=== PATIENT | female | born 1965 | race Caucasian/White ===

== ENCOUNTER 2016-09-22 15:19 | Emergency (ER) | payer MEDICAID ==
[~2016-09-22] VITALS: Ht 175.3 cm; Wt 70.0 kg
[2016-09-22 16:27] LABS: HCG SCREEN NEGATIVE
[2016-09-22] MEDS ORDERED: IBUPROFEN 600MG TABLET PO ONE (17:45)
[2016-09-22] MEDS ORDERED: METHOCARBAMOL 500MG TABLET PO ONE (17:45)
[2016-09-22 18:50] VITALS: BP 122/74
== END 2016-09-22 18:53 | disposition home or self-care (01) ==
LOC: ER 15:40
DX: S16.1XXA Strain of muscle, fascia and tendon at neck level, initial encounter (principal); S40.012A Contusion of left shoulder, initial encounter; V49.59XA Passenger injured in collision with other motor vehicles in traffic accident, initial encounter; Y93.89 Activity, other specified; Y99.8 Other external cause status; Y92.89 Other specified places as the place of occurrence of the external cause
CPT/HCPCS: 72040; 73030; 84703; 99284